=== PATIENT | male | born 1975 | race Caucasian/White ===

== ENCOUNTER 2019-12-19 07:58 | Outpatient (CLI) | payer OTHER, SELFPAY ==
--- NOTE | 2019-12-24 12:31 | SLEEP_ITS ---
Home Sleep Test DATE OF STUDY: 12/19/2019 ORDERING PROVIDER: Dalton Mgcuire, a physician administrative sales assistant. REASON FOR STUDY: Hypersomnia. HISTORY: This patient is a 44-year-old male, 62 inches tall, weighing 188 pounds with a body mass index of 24.1. He has snored frequently for the past year. He has fatigue in the day, irritability, and anxiety. This happens nightly. His symptoms are severe. There is a family history of snoring and sleep apnea. He has used nqzt-wzg-zozjcdy medications to improve sleep quality. He frequently awakens at night with heartburn, belching, or coughing and snoring so loudly that others complain about it. He occasionally has trouble sleeping with a cold. He does not gasp for breath at night. He rarely has breathing problems witnessed by others. He rarely sweats excessively at night. He occasionally notices his heart pounding or beating irregularly at night. He does not fall asleep during the day, does not fall asleep while driving, and does not fall asleep when laughing or crying. He frequently has loss of muscle tone with strong emotion. 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 He rarely feels paralyzed on waking or falling asleep and rarely has vivid dreamlike scenes upon awakening or falling asleep. He is never afraid to go to sleep. He frequently has nightmares. He occasionally remembers his dreams, occasionally has racing thoughts. He rarely feels sad or depressed. He frequently has anxiety. He frequently has muscular tension. He rarely notices parts of his body jerking and he rarely kicks at night. He does not have crawly achy feelings in the legs and rarely has leg pain at night. He occasionally has morning jaw pain. He does not grind his teeth during sleep. He occasionally is bothered by pain during the day. He is not awakened by pain at night. He frequently wakes up feeling stiff in the morning with sore achy muscles and pain in the neck and spine. He has dizziness, fatigue, panic tremors, concentration difficulties, tension, nightmares, palpitations, and headaches. He takes antacids regularly. He has low libido. Normal bedtime is 11 p.m., falling asleep in 15 to 20 minutes, waking 1 to 3 times at night for a few minutes to adjust position, check the clock, and get a drink. He wakes in the morning at 6:35 a.m. Weekends, he may retire 1 hour later at midnight and wake up at 8:30 a.m. He does not take naps. A short nap is not refreshing. He is drowsy in the morning for 1 hour. He feels better in the afternoons than the morning. MEDICAL COMORBIDITIES: Anxiety, asthma, cholesterol, hyperlipidemia, impaired fasting glucose, loud snoring, and fatigue. MEDICATIONS: 1. Sertraline 75 mg daily for anxiety. 2. Symbicort 80 mcg/4.5 two puffs twice a day. 3. Pravastatin 20 mg a day. HABITS: Never smoked tobacco. Caffeine 12-ounce per day. No alcohol. No recreational drugs. DESCRIPTION OF THE STUDY: On the Alvarado Sleepiness Scale, his score is 8. This was conducted as an unattended portable home sleep test with 4 channel monitoring including respiratory effort channel, snoring channel, oxygen saturation channel, and heart rate channel. The study was scored using CMS guidelines. Duration of the study was 7 hours 59 minutes. The apnea-hypopnea index was 2. Oxygen desaturation index 1.2. Lowest desaturation was 91%. Baseline saturation was 97%. He had 5 apneas, 4 of the apneas or 80% were central, 1 apnea or 20% obstructive, 7 hypopneas, 51 snoring events with 10 desaturations and no time spent below 88%. Heart rate ranged from 50 to 107. IMPRESSION: 1. This home sleep test does not show overwhelming evidence of sleep-disordered breathing; however, moon
== END 2019-12-19 07:59 | disposition home or self-care (01) ==
LOC: ANHCSM 07:58
PROVIDERS: PCP Family Medicine; Visit Provider Physician Assistant
DX: G47.10 Hypersomnia, unspecified (principal)
CPT/HCPCS: 95806

== ENCOUNTER 2025-02-13 07:25 | Outpatient (CLI) | payer OTHER, SELFPAY ==
--- NOTE | ~2025-02-13 | NM_ITS ---
EXAMINATION: NM stress w perf spect multi DATE: 02/13/2025 09:48 INDICATION: Other forms of dyspnea TECHNIQUE: Rest images were obtained following intravenous administration of 11.4 mCi Tc99m tetrofosm in (Myoview). The patient performed an exercise activity. At peak exercise, 35.0 mCi Tc99m tetrofosmi n (Myoview) was administered intravenously, and stress images were obtained. Data was reconstructed i nto short axis and horizontal and vertical long axis SPECT images. Gated SPECT images were also obtai ryan. COMPARISON: None. FINDINGS: There is normal left ventricular perfusion without definite evidence of reversible or fixed perfusion abnormality to suggest ischemia or infarction. There is normal left ventricular chamber size, wall motion and ejection fraction. Left ventricular ejection fraction measures >70%. IMPRESSION: 1. Normal myocardial perfusion at rest and during stress. 2. Left ventricular ejection fraction measuring >70%. Reviewed, dictated and finalized at location A.
--- OUTSIDE RECORDS SUMMARY | 2025-02-13 07:28 | XMS_ITS | Clinical Summary ---
Author Organization [facility] Address [address] [place] [address] Care Team Providers Care Paint Stockman Name Role Phone Romain Martinez MD Primary Care Provider Allergies No known active allergies Medications No known medications Active Problems No known active problems Surgical History Surgery Date Site/Laterality Comments KNEE SURGERY 10/31/2012 - 10/30/[address] Walker KNEE SURGERY 10/31/2014 - 10/30/[address] Walker Social History Tobacco Use Types Packs/Day Years Used Date Smoking Tobacco: Never Smokeless Tobacco: Never Personal Safety Answer Date Recorded Getting School Help Needed Not on file 01/12 Sex and Gender Information Value Date Recorded Sex Assigned at Not on file Legal Sex Male 7:09 PM PANAMA HAT BLOCKER Gender Identity Not on file Sexual Orientation Not on file Obstetrics History Last Filed Vital Signs Vital Sign Reading Time Taken Comments Blood Pressure - - Pulse - - Temperature - - Respiratory Rate - - Oxygen Saturation - - Inhaled Oxygen Concentration - - Weight 87.1 kg (192 lb) 11/15/2019 8:01 AM PANAMA HAT BLOCKER Height 188 cm (6' 2 ) 11/15/2019 8:01 AM PANAMA HAT BLOCKER Body Mass Index 24.65 11/15/2019 8:01 AM PANAMA HAT BLOCKER Plan of Treatment Not on file Insurance [facility] CHOICE PLUS [facility] CHOICE PLUS Care Teams Paint Stockman Relationship Specialty Start Date End Date Romain Martinez MD [address] [facility] [address] [place] [address] PCP - General 02/08/17
--- OUTSIDE RECORDS SUMMARY | 2025-02-13 07:28 | XMS_ITS | Continuity of Care Document ---
Author Organization [facility] Address [address] [place] [address] Phone Care Team Providers Care Professional Services Consultant Name Role Phone Dalton Judge MD Unavailable Unavailable Allergies, Adverse Reactions, Alerts Substance Reaction Status Criticality No Known Drug Allergies Active No I nformation Procedures Procedure Date X-ray exam both knees, standing 014 X-ray exam knee, 1 or 2 views 4 Independent Medical Examination TING Advance Directives Directive Yes / No Effective Date File Name No Information Encounters Encounter Description Practice Location Reason(s) For Visit Diagnoses Date Provider Providers Copied on Encounter [facility], [address] [place] [address], [id number], tel:[phone] [facility] No Information 4 Alfie Hoffman. [address] [place] [address], [address], [id number] , [place]. tel: [phone] Independent Medical Examination TING [facility], [address] [place] [address], [id number], [place] tel:[phone] [facility] JOINT PAIN-L/LEG 4 Alfie Hoffman. [address] [place] [address], [address], [id number] , [place]. tel: [phone] Family History Family Member Type Diagnosis Age At Onset No Information Payers Payer name Insurance type Covered libertarian ID Authoriza tion(s) No Information Social History Type Description Quantity Date Captured Comments Sex Male Smoking Status No Information Chief Complaint And Reason For Visit No Information Reason For Referral Reason For Referral No Information Plan Of Treatment Date Type Action Status Referral Ordered: X-ray exam both knees, standing ordered Referral Ordered: X-ray exam knee, 1 or 2 views Left ordered History Of Present Illness Encounter Date Complaint History Of Prese nt Illness No Information Functional Status Date Functional Assessmen t No Information Instructions Date Instruction Additional Infor mation No Information Assessments Type Assessment Date No Information Patient Care Teams Name Effective Dates (start - stop) Status Members No Information
--- OUTSIDE RECORDS SUMMARY | 2025-02-13 07:28 | XMS_ITS | Clinical Summary ---
Author Organization [facility] Address [address] [place] [address] Care Team Providers Care Agriculture Instructor Name Role Phone Romain Martinez MD Primary Care Provider [phone] Source Comments [facility],non-owned Affiliates and Associated Physician Practices is amultiple site organization consisting of ambulatory clinics and hospital sitesin [place], [place], [place] and [place]. This disclosure is being madepursuant to the Care Everywhere program and may not contain all information available regarding this patient. Last updated 18.[facility] Allergies No known active allergies Medications * Be aware that medications may not be up to date on this document. Alwaysverify current medications with the patient. beclomethasone dipropionate (QVAR) 40 MCG/ACT inhaler Inhale 2 puffs by mouth 2 times daily Active ALBUTEROL IN Active albuterol HFA (VENTOLIN HFA) 108 (90 BASE) MCG/ACT inhalerIndication s:Acute bronchitis, unspecified organism Inhale 2 puffs by mouth every 6 hours as needed 1 Inhaler 5 7 Active fluticasone propionate (FLONASE) 50 MCG/ACT nasal sprayIndications: Acute sinusitis, recurrence not specified, unspecified location [place] 2 sprays into each nostril once daily 1 bottles 7 Active Active Problems No known active problems Social History Tobacco Use Types Packs/Day Years Used Date Smoking Tobacco: Never Smokeless Tobacco: Never Sex and Gender Information Value Date Recorded Sex Assigned at Not on file Legal Sex Male 4:46 PM RESISTANCE WELDING MACHINE OPERATOR Gender Identity Not on file Sexual Orientation Not on file Last Filed Vital Signs Vital Sign Reading Time Taken Comments Blood Pressure 104/68 09/09/2017 5:59 PM RESISTANCE WELDING MACHINE OPERATOR Pulse 78 09/09/2017 5:59 PM RESISTANCE WELDING MACHINE OPERATOR Temperature 36.8 C (98.3 F) 09/09/2017 5:59 PM RESISTANCE WELDING MACHINE OPERATOR Respiratory Rate 17 09/09/2017 5:59 PM RESISTANCE WELDING MACHINE OPERATOR Oxygen Saturation 98% 09/09/2017 5:59 PM RESISTANCE WELDING MACHINE OPERATOR Inhaled Oxygen Concentration - - Weight 86.2 kg (190 lb) 09/09/2017 5:59 PM RESISTANCE WELDING MACHINE OPERATOR Height 188 cm (6' 2 ) 09/09/2017 5:59 PM RESISTANCE WELDING MACHINE OPERATOR Body Mass Index 24.39 09/09/2017 5:59 PM RESISTANCE WELDING MACHINE OPERATOR Plan of Treatment Health Maintenance Due Date Last Done Comments COLOGUARD (AGES 45-75) - COL ON CA SCREENING 1977 COLON MONITORING 1977 COLONOSCOPY - COLON CA SCREENING 1977 CT COLONOGRAPHY - COLON CA SCREENING 1977 Colorectal Cancer Screening 1977 FIT - COLON CA SCREENING 1977 FLEX SIG - COLON CA SCREENING 1977 LIPID TESTING 1977 HIV SCREENING 01/24/1992 HEPATITIS C SCREENING 01/19/1995 DTAP/TDAP/TD VACCINES (1 - Tdap) 01/24/1996 HEPATITIS B VACCINE (1 of 3 - 19+ 3-dose series) 01/24/1996 COVID-19 VACCINE (1 - 2023-2 5 season) 2024 DEPRESSION SCREENING 10/31/2024 INFLUENZA VACCINE (Season Ended) 2025 ZOSTER VACCINE (1 of 2) 2027 HIB VACCINE Aged Out No longer eligi ble based on patient's age to complete this topic HPV VACCINE Aged Out No longer eligi ble based on patient's age to complete this topic MENINGOCOCCAL (Group B) VACC INE SHARED DECISION-MAKING Aged Out No longer eligibl e based on patient's age to complete this topic MENINGOCOCCAL GROUPS A/C/Y/W VACCINE Aged Out No longer eligible b ased on patient's age to complete this topic PNEUMOCOCCAL VACCINE Aged Out No long er eligible based on patient's age to complete this topic [place] [address] [place] [address] Care Teams Agriculture Instructor Relationship Specialty Start Date End Date Romain Martinez MD [address] [place] [address] PCP - General Family Medicine 09/09/17
--- OUTSIDE RECORDS SUMMARY | 2025-02-13 07:28 | XMS_ITS | Patient Health Record ---
Author Organization [facility] Address [address] [place] [id number] Care Team Providers Care Flight Test Shop Mechanic Name Role Phone Romain Chavez DC Unavailable Unavailable Reason For Referral No Information Plan Of Treatment No Information
--- OUTSIDE RECORDS SUMMARY | 2025-02-13 07:28 | XMS_ITS | Referral Summary ---
Author Organization [facility] Address [address] [place] [address] Care Team Providers Care Grinding Operator Name Role Phone Romain Martinez MD Primary Care Provider Allergies No known active allergies Medications No known medications Active Problems No known active problems Social History Tobacco Use Types Packs/Day Years Used Date Smoking Tobacco: Never Smokeless Tobacco: Never Personal Safety Answer Date Recorded Getting School Help Needed Not on file 01/12 Sex and Gender Information Value Date Recorded Sex Assigned at Not on file Legal Sex Male 7:09 PM ICE GUARD SKATING RINK Gender Identity Not on file Sexual Orientation Not on file Last Filed Vital Signs Vital Sign Reading Time Taken Comments Blood Pressure - - Pulse - - Temperature - - Respiratory Rate - - Oxygen Saturation - - Inhaled Oxygen Concentration - - Weight 87.1 kg (192 lb) 11/15/2019 8:01 AM ICE GUARD SKATING RINK Height 188 cm (6' 2 ) 11/15/2019 8:01 AM ICE GUARD SKATING RINK Body Mass Index 24.65 11/15/2019 8:01 AM ICE GUARD SKATING RINK Plan of Treatment Not on file Insurance [facility] CHOICE PLUS [place] [id number] Care Teams Grinding Operator Relationship Specialty Start Date End Date Romain Martinez MD [address] [facility] [address] [place] [address] PCP - General 02/08/17
--- OUTSIDE RECORDS SUMMARY | 2025-02-13 07:29 | XMS_ITS | CONTINUITY OF CARE DOCUMENT ---
Author Name beatriz, beatriz Address Unknown Organization [facility] Address [address] [place] [address] Phone [phone] Care Team Providers Care Sound Recording Technician Name Role Phone Emil Billy MD Unavailable ARIN TRAYLOR MD Unavailable ARIN TRAYLOR MD Unavailable PROBLEMS Condition Status Date Provider Notes CHEST PAIN-TYPE TO BE DETERM INED;NEG ECHO 2013 active Emil Billy MD PALPITATIONS;NEG TELESENTRY 13, NEG TSH active Emil Billy MD HYPERCHOLESTEROLEMIA;ON RX active Emil lakhani MD PULMONARY EMBOLISM AND INFAR CTION;NEG DDIMER 13 active Emil Billy MD PULMONARY NODULE;FOLLOWED BY PULMONARY CLOSELY active Emil Billy MD ASTHMA active Emil Billy MD GALLSTONES;NEG US AND ENDO PER PT active Arie Billy MD ANXIETY DISORDER active Emil Billy MD ENCOUNTERS Date Type Provider Location Encounter Diag nosis - In-person encounter Office Visit Emil Billy MD [facility] CHEST PAIN-TYPE TO BE DETERMINED;NEG ECHO 2013PALPITATIONS;NEG TELESENTRY 13, NEG TSHHYPERCHOLESTEROLE CARLOS;ON RXPULMONARY EMBOLISM AND INFARCTION;NEG DDIMER 13PULMONARY NODULE;FOLLOWED BY PULMONARY CLOSELYASTHMAGALLSTO DEVORAH;NEG US AND ENDO PER PTANXIETY DISORDER - In-person encounter Office Visit [facility] HYPERCHOLESTEROLEMIA ;ON RX - In-person encounter Office Visit [facility] CHEST PAIN-TYPE TO BE DETERMINED;NEG ECHO 2013PALPITATIONS;NEG TELESENTRY 13, NEG TSH VITAL SIGNS Date Observation Value Provider blood pressure, diastolic 67 mm[Hg] Alexia chapa Autumn blood pressure, systolic 149 mm[Hg] Can blaire Autumn Body Mass Index (Ratio) 23.83 kg/m2 Louisa cortez Narayan blood pressure, diastolic 89 mm[Hg] Adam burnett Narayan blood pressure, systolic 134 mm[Hg] Carlos pulido Narayan pulse rate 77 /min Laura Narayan oxygen saturation, oximetry 97 % Laura Narayan respiratory rate E&M 17 /min Laura Narayan weight E&M 180 [lb_av] Laura Narayan Body Mass Index (Ratio) 23.83 kg/m2 Power Aguilar COMMERCIAL INTELLIGENCE MANAGER weight E&M 180 [lb_av] Betsy Aguilar COMMERCIAL INTELLIGENCE MANAGER blood pressure, diastolic 70 mm[Hg] Adam burnett Narayan blood pressure, systolic 112 mm[Hg] Carlos Narayan pulse rate 86 /min Laura Narayan oxygen saturation, oximetry 99 % Laura Narayan Body Mass Index (Ratio) 24.76 kg/m2 Louisa cortez Narayan respiratory rate E&M 17 /min Laura Narayan weight E&M 187 [lb_av] Laura Narayan height E&M 73 [in_i] Laura Narayan ALLERGIES No Known Drug Allergies RESULTS Date Observation Value Provider Reference Range Interpretation Location C-reactive protein, serum 3.55 mg/dL [facility] Units converted. See lab report for original value. High folate, serum 20.0 ng/mL [facility] 7.3-26.1 Normal vitamin b12, serum 1143 pg/mL [facility] 211-946 High thyroid stimulating hormone, serum 2.04 u[IU]/mL [facility] 0.270-4.20 Normal hemoglobin A1C, blood, as % of total hemoglobin 5.5 % [facility] Normal basophils, absolute, manual 0.10 K/UL [facility] 0.0-0.1 Normal basophils as percent of blood leukocytes 1.4 % [facility] 0.3-0.9 High eosinophils, absolute, manual 0.16 K/UL [facility] 0.1-0.5 Normal eosinophils as percent of blood leukocytes 2.3 % [facility] 1.1-7.6 Normal monocyte count, blood 0.80 10*3/mm3 [facility] 0.2-0.7 High monocytes as percent of blood leukocytes 11.3 % [facility] 4.2-11.2 High lymphocytes as percent of blood leukocytes 1.99 K/UL [facility] 0.6-3.4 Normal lymphocytes, absolute 28.0 % [facility] 19.8-46.2 Normal neutrophil count, absolute 4.04 K/uL [facility] 1.9-5.9 Normal neutrophils as percent of blood leukocytes 57.0 % [facility] 42.7-72.4 Normal mean platelet volume 9.2 % [facility] 7.4-9.9 Normal red blood cell distribution width 10.9 % [facility] 10.9-14.6 Normal platelet count 239 10*3/mm3 [facility] 165-429 Normal mean corpuscular hemoglobin concentration, RBC 34.2 % [facility] 32.5-34.5 Normal mean corpuscular hemoglobin, RBC 30.6 pg [facility] 21.5-33.3 Normal mean corpuscular volume, RBC 90 fL [facility] 76-98 Normal hematocrit, blood 46.1 % [facility] 34.4-47.3 Normal hemoglobin, blood 15.8 g/dL [facility] 12.5-17.2 Normal erythrocyte (RBC) count 5.15 M/UL [facility] 3.8-5.5 Normal leukocyte count, blood 7.1 10*3/mm3 [facility] 3.7-8.9 Normal LDL/HDL (low-density lipoprotein/high-de nsity lipoprotein) ratio 3.1 RATIO [facility] 0.2-4.3 Normal VLDL cholesterol 17 mg/dL [facility] 8-41 Normal lipoprotein, beta, serum, point, quantitative, calculated 113 mg/dL [facility] 0-130 Normal cholesterol/HDL ratio, serum, percent 4.5 ratio [facility] 1.5-5.6 Normal HDL cholesterol, serum 37 mg/dL [facility] 55 Low triglyceride, serum, fasting 84 mg/dL [facility] Normal cholesterol, serum 167 mg/dL [facility] 0-199 Normal bilirubin, serum, total 0.5 mg/dL [facility] 0-1.2 Normal alanine aminotransferase (SGPT), serum 71 1/L [facility] 0-41 High aspartate aminotransferase (SGOT), serum 34 1/L [facility] 0-40 Normal alkaline phosphatase, serum 65 1/L [facility] 40-129 Normal albumin/globulin ratio, serum 1.8 ratio [facility] 1.0-2.6 Normal globulin, serum 2.6 [facility] 1.6-4.0 Normal albumin, serum 4.7 g/dL [facility] 3.97-4.94 Normal protein, total, serum 7.3 g/dL [facility] 6.6-8.7 Normal calcium, serum 9.8 mg/dL [facility] 8.6-10.0 Normal blood glucose, random 87 mg/dL [facility] 74-109 Normal eGFR if 122 mL/min/{1.73_ m2} [facility] >60 Normal eGFR if not 101 mL/min/{1.73_ m2} [facility] >60 Normal urea nitrogen/creatinine ratio, serum 13.3 ratio [facility] 8.0-25.0 Normal creatinine, serum 0.9 mg/dL [facility] 0.70-1.20 Normal urea nitrogen, blood 12 mg/dL [facility] 6-20 Normal carbon dioxide, venous blood 27 mmol/L [facility] 22-29 Normal chloride, serum 98 MEQ/L [facility] 98-107 Normal potassium, serum 4.5 MEQ/L [facility] 3.5-5.1 Normal sodium, serum 139 MEQ/L [facility] 136-145 Normal TOTAL NON-HDL-C (LDL VLDL) 176 [place] cholesterol/HDL ratio, serum 6.6 [place] cholesterol, serum 208 mg/dL [place] [place] High triglyceride, target level 150 mg/dL [place] [place] HDL cholesterol, serum, target level 40 mg/dL [place] [place] triglyceride, serum, fasting 116 mg/dL [facility] Normal HDL cholesterol, serum 31 mg/dL [facility] Low LDL cholesterol, serum 153 mg/dL [facility] Normal LDL target level 160 mg/dL [facility] [place] cholesterol, target level 200 mg/dL [facility] D-dimer quantitative mcg/mL 0.37 ug/mL Sherrell Estevez platelet count 281 10*3/mm3 Sherrell Estevez hematocrit, blood 46.9 % Sherrell Estevez triiodothyronine (T3), serum 66 ng/dL [facility] 76-181 Low alanine aminotransferase (SGPT), serum 11 1/L [facility] 9-60 Normal aspartate aminotransferase (SGOT), serum 17 1/L [facility] 10-40 Normal alkaline phosphatase, serum 48 1/L [facility] 40-115 Normal bilirubin, serum, total 0.5 mg/dL [facility] 0.2-1.2 Normal albumin/globulin ratio, serum 2.1 (calc) [facility] 1.0-2.5 Normal globulins, serum, total 2.3 G/DL (CALC) [facility] 1.9-3.7 Normal albumin, serum 4.8 g/dL [facility] 3.6-5.1 Normal protein, total, serum 7.1 g/dL [facility] 6.1-8.1 Normal calcium, serum 9.5 mg/dL [facility] 8.6-10.3 Normal carbon dioxide, venous blood 26 mmol/L [facility] 19-30 Normal chloride, serum 104 mmol/L [facility] 98-110 Normal potassium, serum 4.2 mmol/L [facility] 3.5-5.3 Normal sodium, serum 142 mmol/L [facility] 135-146 Normal urea nitrogen/creatinine ratio, serum NOT APPLICABLE (calc) [facility] 6-22 Estimated Glomerular Filtration Rate (calc) 102 mL/min/{1.73_ m2} [facility] > OR = 60 Normal creatinine, serum 1.08 mg/dL [facility] 0.60-1.35 Normal urea nitrogen, blood 12 mg/dL [facility] 7-25 Normal blood glucose, random 94 mg/dL [facility] 65-99 Normal magnesium, serum 2.0 mg/dL [facility] 1.5-2.5 Normal cholesterol/HDL ratio, serum, percent 5.8 (calc) [facility] < OR = 5.0 High LDL cholesterol, serum 142 MG/DL (CALC) [facility] <130 High triglyceride, serum, fasting 86 mg/dL [facility] <150 Normal HDL cholesterol, serum 33 mg/dL [facility] > OR = 40 Low cholesterol, serum 192 mg/dL [facility] 125-200 Normal HISTORY OF MEDICATION USE Medication Status Instructions Dates Provider Indications Com ments VITAMIN D3 2000 UNIT ORAL CAPSULE active 1 daily Shant Rosa LIPITOR 40 MG ORAL TABLET active ONE TAB. DAILY Betsy Aguilar NP CRESTOR 10 MG ORAL TABLET completed ONE TAB. DAILY - Betsy Aguilar NP LORAZEPAM TABLET active 1 TAB as needed Laura Narayan OMEPRAZOLE TABLET DELAYED RELEASE active 1 TAB DAILY Laura Narayan SOCIAL HISTORY Date Observation Value Provider drug use no Emil Sánchez passive cigarette sm radha exposure no Emil Billy MD number of children 2 children Emil lakhani MD social history E&M Marital Statu s: C hildren: 2 children Emil Billy MD social history reviewed E&M reviewed Emil Billy MD physical exercise, f requency, days per week 5 /wk Betsy Aguilar NP drug use none Colton Mccall MD social history reviewed E&M reviewed Colton Mccall MD smoking status never smoker Laura Narayan FUNCTIONAL STATUS Date Observation Value Provider periodic limb movement index absent (0) Keya Leyva MENTAL STATUS Date Observation Value Provider assessment of judgme nt and insight E&M Alert and oriented to time, place and person. Mood and affect are normal. Emil Billy MD assessment of judgme nt and insight E&M Alert and oriented to time, place and person. Mood and affect are normal. Colton Mccall MD INSURANCE PROVIDERS Payer name Policy type / Coverage type Azael red republican ID [facility] [id number] Other [id number] TREATMENT PLAN Date Name Performer follow up: O rders: S TR - Routine (CPT-68818) V ITAMIN B12 (927) V ITAMIN D, 25-HYDROXY, LC/MS/MS (03039) C -REACTIVE PROTEIN (4420) C ardiopulmonary Stress Test (CPT-81133) T HYROID PANEL WITH TSH, 3RD GENERATION (7444) C BC (H/H, RBC, INDICES, WBC, PLT) (1759) H olter Monitor 24 Hr (CPT-01024) Emil Billy MD follow up: O rders: S TR - Routine (CPT-08767) V ITAMIN B12 (927) V ITAMIN D, 25-HYDROXY, LC/MS/MS (78422) C -REACTIVE PROTEIN (4420) C ardiopulmonary Stress Test (CPT-19021) T HYROID PANEL WITH TSH, 3RD GENERATION (7444) C BC (H/H, RBC, INDICES, WBC, PLT) (1759) H olter Monitor 24 Hr (CPT-54730) Emil Billy MD follow up: H is updated medication list for this problem includes: Lipitor 40 Mg Tabs (Atorvastatin calcium) ..... One tab. daily Orders: C OMPREHENSIVE METABOLIC PANEL W/EGFR (56779) L IPID PANEL (7600) S TR - Routine (CPT-82235) V ITAMIN B12 (927) V ITAMIN D, 25-HYDROXY, LC/MS/MS (42834) C -REACTIVE PROTEIN (4420) C ardiopulmonary Stress Test (CPT-54675) THYROID PANEL WITH TSH, 3RD GENERATION (7444) C BC (H/H, RBC, INDICES, WBC, PLT) (1759) H olter Monitor 24 Hr (CPT-59378) Emil Billy MD follow up: H is updated medication list for this problem includes: Lorazepam Tabs (Lorazepam tabs) ..... 1 tab as needed Orders: E KG (CPT-49142) C OMPREHENSIVE METABOLIC PANEL W/EGFR (59070) L IPID PANEL (7600) S TR - Routine (CPT-10653) V ITAMIN B12 (927) V ITAMIN D, 25-HYDROXY, LC/MS/MS (39990) C -REACTIVE PROTEIN (4420) C ardiopulmonary Stress Test (CPT-91759) T HYROID PANEL WITH TSH, 3RD GENERATION (7444) C BC (H/H, RBC, INDICES, WBC, PLT) (1759) H olter Monitor 24 Hr (CPT-85805) Emil Billy MD follow up: O rders: S TR - Routine (CPT-79695) V ITAMIN B12 (927) V ITAMIN D, 25-HYDROXY, LC/MS/MS (31586) C -REACTIVE PROTEIN (4420) C ardiopulmonary Stress Test (CPT-57854) T HYROID PANEL WITH TSH, 3RD GENERATION (6644) C BC (H/H, RBC, INDICES, WBC, PLT) (1759) H olter Monitor 24 Hr (CPT-89406) Emil Billy MD Lipid clinic:Patient continues to have complaints of chest tightness and shortness of breath. He is being worked up for allergies and asthma. Upper endoscopy was unremarkable. He will return to see Dr. Mccall in 3 months. Betsy Aguilar NP Lipid clinic: T he following medications were removed from the medication list: Crestor 10 Mg Tabs (Rosuvastatin calcium) ..... One tab. daily His updated medication list for this problem includes: Lipitor 40 Mg Tabs (Atorvastatin calcium) ..... One tab. daily Patient presents for lipid clinic. He states his PCP discontinued the Crestor, he is unclear as to why. He also states the Crestor was too expensive. His total cholesterol and LDL are elevated. Will begin Lipitor 40mg and refer to our research department to see if there are any studies he may qualify for. He will return to lipid clinic in 2 months. Betsy Aguilar NP HOSPITAL FOLLOW UP: O rders: L IPID PANEL (2990) C OMPREHENSIVE METABOLIC PANEL W/EGFR (48719) M AGNESIUM (622) T SH, 3RD GENERATION W/REFLEX TO FT4 (60772) T 3, TOTAL (859) BP today: 112/70 Prior BP: / () Colton Mccall MD Date Name HEMOGLOBIN A1c SED RATE BY MODIFIED [place] Holter Monitor 24 Hr CBC (H/H, RBC, INDIC ES, WBC, PLT) THYROID PANEL WITH T SH, 3RD GENERATION Cardiopulmonary Stre ss Test C-REACTIVE PROTEIN VITAMIN D, 25-HYDROX Y, LC/MS/MS VITAMIN B12 STR - Routine LIPID PANEL COMPREHENSIVE METABO LIC PANEL W/EGFR T3, TOTAL TSH, 3RD GENERATION W/REFLEX TO FT4 MAGNESIUM COMPREHENSIVE METABO LIC PANEL W/EGFR LIPID PANEL HISTORY OF PROCEDURES Procedure Date Procedure Name Provider Procedure Notes S tatus EKG Emil Billy MD complete d
--- NOTE | 2025-02-13 07:37 | EST_ITS ---
Patient Info Name: Faizan Juarez Age: 50 years : 1975 Gender: Male Ht: 74 in Wt: 200 lbs BSA: 2.18 m2 HR: 64 bpm BP: 106 / 75 mmHg Exam Date: 02/13/2025 8:44 AM Exam Location: Echo Lab Patient Status: Outpatient Admit Date: 02/13/2025 Staff Ordering Physician: Dm Leyva PA-C Attending Provider: Dm Leyva PA-C Exercise Technologist: Chen Dang JARROD Exercise Physician: Kishore Neves DO Exam Type: CA stress test treadmill w NM Study Info A nuclear stress test was performed. Summary 1. 1. Negative Bertin exercise stress test for ischemic ST changes by ECG criteria. 2. 2. Good functional capacity, achieving 10 METs of workload. 3. 3. Appropriate HR response to exercise. 4. 4. Appropriate HR recovery at 1 minute post exercise. 5. 5. Nuclear scan to follow and will be reported separately. Please correlate with it. 6. 6. Patient informed of the above results. Protocol: Bertin Stress ECG Details Stage: REST Duration (min): 1 min : 1 sec Speed (mph): 0.0 Grade (%): 0 HR (bpm): 63 SBP (mmHg): 106 DBP (mmHg): 75 METS: --- Stage: REST Duration (min): 7 min : 58 sec Speed (mph): 0.0 Grade (%): 0 HR (bpm): 81 SBP (mmHg): 106 DBP (mmHg): 75 METS: --- Stage: STAGE 1 Duration (min): 1 min : 0 sec Speed (mph): 1.7 Grade (%): 10 HR (bpm): 105 SBP (mmHg): 106 DBP (mmHg): 75 METS: --- Stage: STAGE 1 Duration (min): 2 min : 0 sec Speed (mph): 1.7 Grade (%): 10 HR (bpm): 112 SBP (mmHg): 106 DBP (mmHg): 75 METS: --- Stage: STAGE 1 Duration (min): 3 min : 0 sec Speed (mph): 1.7 Grade (%): 10 HR (bpm): 115 SBP (mmHg): 136 DBP (mmHg): 83 METS: --- Stage: STAGE 2 Duration (min): 1 min : 0 sec Speed (mph): 2.5 Grade (%): 12 HR (bpm): 125 SBP (mmHg): 136 DBP (mmHg): 83 METS: --- Stage: STAGE 2 Duration (min): 2 min : 0 sec Speed (mph): 2.5 Grade (%): 12 HR (bpm): 138 SBP (mmHg): 170 DBP (mmHg): 62 METS: --- Stage: STAGE 2 Duration (min): 3 min : 0 sec Speed (mph): 2.5 Grade (%): 12 HR (bpm): 141 SBP (mmHg): 170 DBP (mmHg): 62 METS: --- Stage: STAGE 3 Duration (min): 1 min : 0 sec Speed (mph): 3.4 Grade (%): 14 HR (bpm): 151 SBP (mmHg): 184 DBP (mmHg): 63 METS: --- Stage: STAGE 3 Duration (min): 2 min : 0 sec Speed (mph): 3.4 Grade (%): 14 HR (bpm): 160 SBP (mmHg): 184 DBP (mmHg): 63 METS: --- Stage: STAGE 3 Duration (min): 2 min : 0 sec Speed (mph): 3.4 Grade (%): 14 HR (bpm): 160 SBP (mmHg): 184 DBP (mmHg): 63 METS: --- Stage: RECOVERY Duration (min): 0 min : 59 sec Speed (mph): 0.0 Grade (%): 0 HR (bpm): 114 SBP (mmHg): 128 DBP (mmHg): 71 METS: --- Stage: RECOVERY Duration (min): 1 min : 59 sec Speed (mph): 0.0 Grade (%): 0 HR (bpm): 104 SBP (mmHg): 128 DBP (mmHg): 71 METS: --- Stage: RECOVERY Duration (min): 2 min : 59 sec Speed (mph): 0.0 Grade (%): 0 HR (bpm): 94 SBP (mmHg): 136 DBP (mmHg): 93 METS: --- Stage: RECOVERY Duration (min): 3 min : 59 sec Speed (mph): 0.0 Grade (%): 0 HR (bpm): 90 SBP (mmHg): 136 DBP (mmHg): 93 METS: --- Stage: RECOVERY Duration (min): 4 min : 12 sec Speed (mph): 0.0 Grade (%): 0 HR (bpm): 91 SBP (mmHg): 136 DBP (mmHg): 93 METS: --- Rest HR: 81 bpm Peak HR: 161 bpm Rest Sys BP: 106 mmHg Peak Sys BP: 184 mmHg Max Pred HR: 172 bpm % Max Pred HR: 94 % Target HR: 146 bpm Max RPP: 29,624 bpm*mmHg Leon Score: -10 Termination Reason: Reached target heart rate or workload Cardiac Symptoms: Shortness of breath Max ST Seg Deviation: 4 mm Total Time: 8 min : 0 sec Rest Pastor BP: 75 mmHg Peak Pastor BP: 63 mmHg Angina Score: None Total METS: 10.3 Resting ECG Sinus rhythm. Stress ECG No ST changes. Arrhythmias None. Report Signatures
== END 2025-02-13 07:26 | disposition home or self-care (01) ==
LOC: ANHCARD 07:26
PROVIDERS: PCP Family Medicine; Visit Provider Physician Assistant
DX: R06.09 Other forms of dyspnea (principal); R07.89 Other chest pain; R61 Generalized hyperhidrosis; E78.5 Hyperlipidemia, unspecified
CPT/HCPCS: 78452; 93017; A9502